=== PATIENT | male | born 1955 | race Caucasian/White ===

== ENCOUNTER → 2016-03-21 | Outpatient (CLI) | payer MEDICAID ==
--- NOTE | 2016-03-21 17:39 | DX ---
PA and lateral chest History: Right-sided chest pain for 3 weeks. Comparison: None available. Findings: Granulomas are present. The lungs are hyperexpanded without focal consolidation. There is no pneumothorax or pleural effusion. The heart and pulmonary vasculature are normal. Degenerative ch anges are present in the spine. Impression: Hyperexpansion, possibly related to airways disease or COPD.
== END ==
LOC: FIMAGING 12:30
PROVIDERS: ATTEND Physician Assistant
DX: R07.89 Other chest pain (principal)

== ENCOUNTER → 2017-11-19 | Outpatient (CLI) | payer MEDICAID | LOC: FLAB 11:52 | PROVIDERS: ATTEND Internal Medicine | DX: M79.642 Pain in left hand (principal); L98.9 Disorder of the skin and subcutaneous tissue, unspecified ==